=== PATIENT | male | born 1970 | race Caucasian/White ===

== ENCOUNTER → 2019-10-09 | Outpatient (CLI) | payer OTHER ==
[~2019-10-09] MED LIST: AFLEXA340 MG; ECHINACEA400 M1 PO; NO HOME MEDICATIONS; ZYRTEC5 MG PO
== END ==
LOC: COL.RAD 13:57
DX: M17.12 Unilateral primary osteoarthritis, left knee (principal); M94.262 Chondromalacia, left knee; M71.22 Synovial cyst of popliteal space [Baker], left knee; M67.462 Ganglion, left knee